=== PATIENT | female | born 1970 ===

== ENCOUNTER → 2021-11-02 | Outpatient (REF) | LOC: M LAB 10:09 | PROVIDERS: ATTEND Nurse Practitioner Adult Health | DX: Z02.9 Encounter for administrative examinations, unspecified (principal) ==

== ENCOUNTER → 2022-01-31 | Outpatient (REF) ==
[2022-01-31 13:49] LABS: RSV AMPLIFICATION NEGATIVE (NEGATIVE)
== END ==
LOC: M LABSMTC 12:00
PROVIDERS: ATTEND Family Medicine
DX: Z20.822 Contact with and (suspected) exposure to COVID-19 (principal)